=== PATIENT | male | born 1995 | race Two or more races ===

== ENCOUNTER 2019-12-20 14:43 | Emergency (ER) | payer OTHER ==
[~2019-12-20] VITALS: Ht 172.7 cm; Wt 96.9 kg
--- NOTE | 2019-12-20 15:49 | NUR ---
[employer]: PT TO ROOM FROM LOBBY VIA W/C
[2019-12-20] MEDS ORDERED: MECLIZINE CHEWABLE 25 MG TAB PO ONE (17:00)
[2019-12-20] MEDS ORDERED: ONDANSETRON 2MG/ML, 2ML IVPush ONE (17:00)
[2019-12-20] MEDS ORDERED: SODIUM CHLORIDE 0.9% 1,000ML IVBOLUS ONE (17:00)
[2019-12-20] MEDS ORDERED: SODIUM CHLORIDE FLUSH 10ML SYR IVF ONE (17:00)
[2019-12-20 17:03] LABS: BASOPHILS # (AUTO) 0.03 x10^3/uL (0-0.1); BASOPHILS % (AUTO) 0 % (0-1); EOSINOPHILS # (AUTO) 0.01 x10^3/uL (0-0.4); EOSINOPHILS % (AUTO) 0 % (1-7); LYMPHOCYTES % (AUTO) 15 % (22-44); MD NO; MEAN CORPUSCULAR HEMOGLOBIN 32.3 pg (27.5-34.5); MEAN CORPUSCULAR HGB CONC 33.4 g/dL (33.2-36.2); MEAN CORPUSCULAR VOLUME 96.8 fL (81-97); MEAN PLATELET VOLUME 9.1 fL (7.4-10.4); MONOCYTES % (AUTO) 9 % (2-9); NEUTROPHILS # (AUTO) 5.27 x10^3/uL (1.8-6.8); NEUTROPHILS % (AUTO) 76 % (42-75); PLATELET COUNT 215 x10^3/uL (130-400); RED BLOOD COUNT 4.78 x10^6/uL (4.38-5.82)
[2019-12-20] MEDS ORDERED: MECLIZINE CHEWABLE 25 MG TAB ONE (17:08)
[2019-12-20] MEDS ORDERED: ONDANSETRON 2MG/ML, 2ML ONE (17:08)
[2019-12-20 17:16] LABS: ALANINE AMINOTRANSFERASE 82 U/L (12-78); ALBUMIN 3.7 g/dL (3.4-5.0); ANION GAP 7 mmol/L (5-15); CALCIUM 8.6 mg/dL (8.5-10.1); CHLORIDE 106 mmol/L (98-107)
[2019-12-20 17:19] LABS: ALKALINE PHOSPHATASE 163 U/L (45-117); BILIRUBIN,TOTAL 0.6 mg/dL (0.2-1.0); CREATININE 0.81 mg/dL (0.7-1.3); TOTAL PROTEIN 7.9 g/dL (6.4-8.2)
[2019-12-20 17:22] VITALS: BP 128/84
--- NOTE | 2019-12-20 17:23 | NUR ---
TASK RN: THIS IS A 24 YO MALE COMING IN FOR DIZZINESS WITH N/V SINCE 2100 LAST NIGHT. DENIES ANY PAIN ANYWHERE, C/O MILD SCHMITT, NO SENSITIVITY TO LIGHT. A&OX4, DENIES ANY MEDICAL HX. MONITORING IN PLACE. PIV PLACED, MEDICATED PER EMAR, TOLERATED WELL. WCTM. CALL LIGHT IN REACH
--- NOTE | 2019-12-20 18:50 | NUR ---
PT STATES DIZZINESS AND NAUSEA IMPROVED BUT REMAINS DIZZY WHEN TURNS HEAD.
== END 2019-12-20 18:57 | disposition home or self-care (01) ==
LOC: ED 17:09
DX: H81.12 Benign paroxysmal vertigo, left ear (principal); R42 Dizziness and giddiness; R11.0 Nausea; R94.31 Abnormal electrocardiogram [ECG] [EKG]; F17.200 Nicotine dependence, unspecified, uncomplicated
CPT/HCPCS: 36415; 80053; 85025; 93005; 96361; 96374; 99284; J2405; J7030